=== PATIENT | male | born 2000 | race Two or more races ===

== ENCOUNTER 2024-12-30 22:36 | Inpatient (IN) | payer OTHER ==
[~2024-12-30] VITALS: Ht 190.5 cm; Wt 92.1 kg
[2024-12-30] MEDS ORDERED: ROSUVASTATIN CA10 MG PO (23:12)
--- NOTE | 2024-12-30 23:17 | NUR ---
SE RECIBE PACIENTE ALERTA Y ORIENTADO X3 EL CUAL REFIERE VENIR A CAUSA DE PRESENTAR UN ABCESO EN AREA DE PIERNA IZQUIERDA. AL MOMENTO SE OBSERVA ABCESO CON SECRECION Y ENROJECIMIENTO. SE MIDEN S/V Y SE UBICA.
[2024-12-31] MEDS ORDERED: GENTAMICIN SULFATE 40 MG/ML VIAL IV STA ×2 (00:39→07:13)
[2024-12-31] MEDS ORDERED: CEFTRIAXONE SODIUM 1,000 MG VIAL IV STA (00:39)
[2024-12-31] MEDS ORDERED: GENTAMICIN SULFATE 40 MG/ML VIAL ONE ×2 (00:42→08:43)
[2024-12-31] MEDS ORDERED: CEFTRIAXONE SODIUM 1,000 MG VIAL ONE (00:43)
[2024-12-31] MEDS ORDERED: 0.9 % SODIUM CHLORIDE 1,000 ML IV ONE (00:45)
--- NOTE | 2024-12-31 00:50 | NUR ---
SE ORIENTA PTE SOBRE TX A SEGUIR, EL MISMO REFIERE ENTENDER. SE RIA MUESTRA DE LAB, SE CANALIZA Y SE ADMINISTRA MED HOMERO ORDEN MEDICA BAJO MEDIDAS ASEPTICAS
[2024-12-31] MEDS ORDERED: BACITRACIN-NEOMYCIN-POLYMYXIN 0.9 GM PACKET TOP ONE (01:10)
[2024-12-31 01:35] LABS: HEMOGLOBIN 15.1 g/dL (13-16.00); MEAN CELL VOLUME 86.9 fL (80.0-100.00); MEAN CORPUSCULAR HEMOGLOBIN 29.2 pg (27.00-32.0); MEAN CORPUSCULAR HGB CONC 33.6 g/dl (32.0-36.0); PLATELET COUNT 220 K/uL (150-450); RED BLOOD COUNT 5.17 M/uL (4.00-6.00); RED CELL DISTRIBUTION WIDTH 14.2 % (11.5-14.5)
[2024-12-31 01:42] LABS: CALCIUM 8.9 mg/dL (8.5-10.1); CREATININE SERUM 1.19 mg/dL (0.70-1.30); GFR 75.1; POTASSIUM 4.28 mEq/L (3.5-5.1)
--- NOTE | 2024-12-31 07:23 | NUR ---
SE RECIBE PACIENTE ALERTA Y ORIENTADO X3 EN COMPANIA DE FAMILIAR A QUIEN SE LE ORIENTA SOBRE CONTINUIDAD DE TRATAMIENTO MEDICO Y REFIEREN ENTENDER, SE OBSERVA PACIENTE EN SYDNIE, BARANDAS ELEVADAS Y EN LOREDO NIVEL MAS BAJO POR PRECAUCION A CAIDAS. PACIENTE PREVIAMENTE CANALIZADO RECIBIENDO IV FLUIDS HOMERO ORDEN. SE OBSERVA EN PIERNA IZQUIERDA CON CELLILITIS Y MAURICIO ABSCESO SUPURANDO CON BENDAJE LIMPIO Y SECO. SE MONITOREAN S/V Y SE MANTIENE BAJO OBSERVACION POR CAMBIOS EN LOREDO CONDICION EN ESPERA DE EVALUACION CON DR AVERY.
--- NOTE | 2024-12-31 08:00 | NUR ---
SE LE ORIENTA A PACIENTE SOBRE USO Y ADMINISTRACION DE MEDICAMENTOS Y REFIER ENTENDER, SE LE ADMINISTRAN MED BAJO MEDIDAS ASEPTICAS.
[2024-12-31 08:44] VITALS: BP 107/65
--- NOTE | 2024-12-31 15:26 | NUR ---
PTE SIENDO EVALUADO POR PERSONAL ADMITTING.
[2024-12-31] MEDS ORDERED: 0.9 % SODIUM CHLORIDE 1,000 ML IV SCH (16:15)
[2024-12-31] MEDS ORDERED: ACETAMINOPHEN 500 MG GEL..CAP PO PRN (16:15)
[2024-12-31 18:05] VITALS: BP 123/84; O2SAT 99
[2024-12-31 18:14] LABS: PH,URINE 6.5 (5.0-8.0); URINE APPEARANCE Clear; URINE BILIRRUBIN Negative (NEGATIVE); URINE BLOOD Negative; URINE COLOR Yellow; URINE GLUCOSE Negative (NEGATIVE); URINE KETONE Negative (NEGATIVE); URINE LEUKOCYTE Negative; URINE NITRATE Negative; URINE PROTEIN Negative (NEGATIVE); URINE UROBILINOGEN 0.2 E.U./dl
[2024-12-31 18:18] LABS: URINE RBC 17.9 uL (0.0-20.8)
[2024-12-31 18:23] LABS: INR 1.07; PARTIAL THROMBOPLASTIN TIME 28.3 SECONDS (22.0-34.0); PROTHROMBIN TIME 11.6 SECONDS (9.0-11.5)
[2024-12-31 18:37] LABS: URINE BACTERIA 1.2 uL (0.0-1933); URINE EPITHELIAL CELLS 0.7 uL (0.0-38.8)
[2024-12-31 20:05] VITALS: BP 116/67
[2024-12-31] MEDS ORDERED: VANCOMYCIN HCL 1,000 MG VIAL IV SCH (21:00)
[2025-01-01 01:08] VITALS: BP 103/61
[2025-01-01 06:55] LABS: HEMATOCRIT 40.5 % (39.0-48.0); HEMOGLOBIN 13.7 g/dL (13-16.00); MEAN CELL VOLUME 87.6 fL (80.0-100.00); MEAN CORPUSCULAR HEMOGLOBIN 29.6 pg (27.00-32.0); MEAN CORPUSCULAR HGB CONC 33.8 g/dl (32.0-36.0); PLATELET COUNT 194 K/uL (150-450); RED BLOOD COUNT 4.62 M/uL (4.00-6.00); RED CELL DISTRIBUTION WIDTH 13.8 % (11.5-14.5)
[2025-01-01 06:58] LABS: ALBUMIN 2.9 gm/dL (3.4-5.0); BILIRUBIN TOTAL 0.47 mg/dL (0.3-1.2); CALCIUM 8.2 mg/dL (8.5-10.1); CREATININE SERUM 0.81 mg/dL (0.70-1.30); GFR 117.07; GLOBULINA 3.6 G/DL (2.4-3.5); POTASSIUM 4.09 mEq/L (3.5-5.1); TOTAL PROTEIN 6.5 gm/dL (6.4-8.2)
[2025-01-01 07:02] LABS: C-REACTIVE PROTEIN 4.01 MG/DL (0.00-0.29)
[2025-01-01 07:51] LABS: ERYTHROCYTE SEDIMENTATION RATE 30 mm/hr
[2025-01-01] MEDS ORDERED: CEFTRIAXONE SODIUM 2,000 MG VIAL ONE (08:11)
[2025-01-01] MEDS ORDERED: FAMOTIDINE/PF 20 MG/2 ML VIAL ONE (08:11)
[2025-01-01] MEDS ORDERED: CEFTRIAXONE SODIUM 2,000 MG in 0.9 % SODIUM CHLORIDE 100 ML IV SCH (09:00)
[2025-01-01] MEDS ORDERED: FAMOTIDINE/PF 20 MG in 0.9 % SODIUM CHLORIDE 8 ML IV PUSH SCH (09:00)
[2025-01-01] MEDS ORDERED: ENOXAPARIN SODIUM 40 MG/0.4 ML SYRINGE SUBCUTANEO SCH (09:00)
[2025-01-01 10:23] VITALS: BP 113/65; O2SAT 98
[2025-01-01 17:36] VITALS: BP 115/70; O2SAT 100
[2025-01-01] MEDS ORDERED: VANCOMYCIN HCL 5 MG/ML REDILUIDO IV SCH ×2 (21:00)
[2025-01-02 01:21] VITALS: BP 111/64; O2SAT 97
[2025-01-02 08:23] VITALS: BP 105/66
[2025-01-02] MEDS ORDERED: CHLORHEXIDINE GLUCONATE 240 ML BOTTLE TOP SCH (09:00)
[2025-01-02 19:04] VITALS: BP 110/70
[2025-01-03 01:05] VITALS: BP 115/73; O2SAT 95
[2025-01-03 09:09] VITALS: BP 103/61
[2025-01-03 17:13] VITALS: BP 126/75; O2SAT 99
[2025-01-03] MEDS ORDERED: VANCOMYCIN HCL 1,000 MG VIAL IV SCH (17:38)
[2025-01-04 01:58] VITALS: BP 105/68; O2SAT 99
[2025-01-04 09:03] VITALS: BP 102/60
[2025-01-04] MEDS ORDERED: MUPIROCIN 15 GM OINT..GM TUBE NASAL SCH (17:20)
[2025-01-04 17:50] VITALS: BP 116/69; O2SAT 98
[2025-01-05 00:42] VITALS: BP 135/79; O2SAT 97
[2025-01-05 08:19] VITALS: BP 118/74
== END 2025-01-05 11:10 | disposition home or self-care (01) | DRG 603 ==
LOC: ER → SEC-K 12-31 16:28 → MEDI 12-31 16:28
PROVIDERS: General Practice; ADMIT Internal Medicine; ATTEND Internal Medicine
PROC: BQ3FZZZ Magnetic Resonance Imaging (MRI) of Left Lower Leg (ICD-10-PCS; principal; 2024-12-31)
PROC: B54CZZZ Ultrasonography of Left Lower Extremity Veins (ICD-10-PCS; 2024-12-31)
DX: L02.416 Cutaneous abscess of left lower limb (principal); Z22.322 Carrier or suspected carrier of Methicillin resistant Staphylococcus aureus